=== PATIENT | male | born 1935 ===

== ENCOUNTER 2016-11-08 12:10 | Emergency (ER) | payer MEDICARE, MEDICAID ==
[2016-11-08 12:22] VITALS: BP 159/75; PULSE 77; RESP 18; TEMP 97.6; O2SAT 96
--- NOTE | 2016-11-08 13:11 | ED PDOC ---
Arrival/HPI - General Historian: Patient - General Chief Complaint: ENT Problem Time Seen by Provider: 11/08/16 12:25 - History of Present Illness Narrative History of Present Illness (Text): 11/08/16 13:08 81 yo male presenting with complaints of sore throat and myalgias. Patient states these symptoms have been ongoing for 10 days. He denies GI symptoms, cough, shortness of breath, chest pain, fever or chills. The patient was prescribed Amoxicillin on 11/06/16 and has taken one dose at this point. Currently the patient is afebrile and without acute distress. 11/08/16 14:53 (Clayton Higgins) Past Medical History - Provider Review Nursing Documentation Reviewed: Yes - Infectious Disease Hx of Infectious Diseases: None - Psychiatric Hx Substance Use: No Family/Social History - Physician Review Nursing Documentation Reviewed: Yes Family/Social History: Unknown Family HX Smoking Status: Never Smoked Hx Alcohol Use: No Hx Substance Use: No Allergies/Home Meds Allergies/Adverse Reactions: Allergies No Known Allergies Allergy (Verified 11/08/16 12:22) Home Medications: Home Meds Medication Instructions Recorded Confirmed Amoxicillin [Amoxil 500 mg Cap] 500 mg PO TID 11/08/16 11/08/16 Review of Systems - Physician Review All systems were reviewed & negative as marked: Yes - Review of Systems Constitutional: absent: Fatigue, Fevers Eyes: Normal ENT: Sore Throat. absent: Tinnitus, Voice Changes, Rhinorrhea, Sinus Congestion Cardiovascular: absent: Chest Pain, SANCHEZ Gastrointestinal: absent: Abdominal Pain, Diarrhea, Nausea, Vomiting Genitourinary Male: absent: Dysuria, Frequency, Hematuria Musculoskeletal: Myalgias. absent: Back Pain, Neck Pain Skin: absent: Rash, Pruritis, Skin Lesions Neurological: absent: Headache, Dizziness, Focal Weakness Psychiatric: absent: Anxiety, Depression Physical Exam Vital Signs Reviewed: Yes Temperature: Afebrile Blood Pressure: Normal Pulse: Regular Respiratory Rate: Normal Appearance: Positive for: Well-Appearing, Non-Toxic Pain Distress: None Mental Status: Positive for: Alert and Oriented X 3 - Systems Exam Head: Present: Atraumatic, Normocephalic Pupils: Present: PERRL Extroacular Muscles: Present: EOMI Conjunctiva: Present: Normal Mouth: Present: Moist Mucous Membranes, Normal Lips, Normal Tounge. No: Drooling, Trismus Pharnyx: Present: Other (no hyoid tenderness). No: ERYTHEMA, EXUDATE, TONSILS ENLARGED, Peritonsilar Swelling, Uvular Deviation, Muffled/Hoarse Voice, Strider , Soft Palate/Uvular Edema Neck: Present: Normal Range of Motion, Trachea Midline. No: Meningeal Signs, Lymphadenopathy Respiratory/Chest: Present: Clear to Auscultation, Good Air Exchange. No: Respiratory Distress Abdomen: Present: Normal Bowel Sounds. No: Tenderness Upper Extremity: Present: Normal Inspection. No: Cyanosis, Edema Lower Extremity: Present: Normal Inspection, CALF TENDERNESS, NORMAL PULSES. No : Edema Neurological: Present: GCS=15, CN II-XII Intact, Speech Normal Skin: Present: Warm. No: Dry, Rashes Psychiatric: Present: Alert, Oriented x 3, Normal Insight, Normal Concentration Vital Signs Temp Pulse Resp BP Pulse Ox 11/08/16 12:17 97.6 F 77 18 159/75 H 96 Medical Decision Making ED Course and Treatment: Patient Seen With Resident: In agreement with resident note. Patient was seen and evaluated with resident, came up with plan and treatment together. (Olegario Lee) 11/08/16 13:29 81 y/o male presenting with pharyngitis. There are no clinical signs of retropharyngeal abscess, epiglottitis or gale angina. Patient is already taking Amoxicillin which he started one day ago. It was explained to the patient that this medication will take a few days to reduce his symptoms. The patient will return if symptoms do not resolve in 3 to 4 days. (Clayton Higgins) Disposition/Present on Arrival - Present on Arrival Any Indicators Present on Arrival: No History of DVT/PE: No History of Uncontrolled Diabetes: No Urinary Catheter: No History of Decub. Ulcer: No History Surgical Site Infection Following: None - Disposition Have Diagnosis and Disposition been Completed?: Yes Disposition Time: 14:00 - Disposition Diagnosis: Pharyngitis Disposition: HOME/ ROUTINE Condition: GOOD Discharge Instructions (ExitCare): Pharyngitis (ED) Print Language: DANISH Additional Instructions: Continue taking Amoxicillin as instructed. This medication will take a few days to be effective. Return to the ER if your symptoms do not resolve within the next 3 to 4 days. Referrals: Borghini,Latoya, MD [Primary Care Provider] - Follow up with primary
== END 2016-11-08 13:17 | disposition home or self-care (01) ==
LOC: ED 12:10
DX: J02.9 Acute pharyngitis, unspecified (principal)

== ENCOUNTER 2016-11-15 13:37 | Emergency (ER) | payer MEDICARE, MEDICAID ==
--- NOTE | 2016-11-15 14:09 | ED PDOC ---
Arrival/HPI - General Chief Complaint: ENT Problem Time Seen by Provider: 11/15/16 14:07 Historian: Patient, Family - History of Present Illness Narrative History of Present Illness (Text): 11/15/16 15:06 Patient reports several day h/o sore throat, states that he recently had the flu and saw his doctor, was prescribed amoxicillin to take 3 times a day for 7 days, last dose was taken yesterday. Otherwise: (-) cough, (-) fever, (-) SOB, ( -) chest pain, (-) N/V/D, (-) abdominal pain, (-) flank pain, (-) urinary symptoms, (-) recent travel, (-) sick contacts. PMD Bri Past Medical History - Provider Review Nursing Documentation Reviewed: Yes - Infectious Disease Hx of Infectious Diseases: None - Musculoskeletal/Rheumatological Hx Arthritis: Yes - Psychiatric Hx Substance Use: No - Anesthesia Hx Anesthesia: No Family/Social History - Physician Review Nursing Documentation Reviewed: Yes Family/Social History: No Known Family HX Smoking Status: Never Smoked Hx Alcohol Use: No Hx Substance Use: No Allergies/Home Meds Allergies/Adverse Reactions: Allergies No Known Allergies Allergy (Verified 11/08/16 12:22) Home Medications: Home Meds Medication Instructions Recorded Confirmed Amoxicillin [Amoxil 500 mg Cap] 500 mg PO TID 11/08/16 11/08/16 Review of Systems - Review of Systems Constitutional: Normal. absent: Fatigue, Weight Change, Fevers ENT: Normal. absent: Hearing Changes, Tinnitus, TMJ Pain Respiratory: Normal, Cough. absent: SOB, Sputum Cardiovascular: Normal. absent: Chest Pain, Palpitations Musculoskeletal: Normal. absent: Arthralgias, Back Pain, Neck Pain Skin: Normal. absent: Rash, Pruritis, Skin Lesions Physical Exam - Physical Exam Narrative Physical Exam (Text): 11/15/16 15:09 GENERAL APPEARANCE: Patient is awake, alert, oriented x 3, in no acute distress. SKIN: Warm, dry; (-) cyanosis, (-) rash. (-) Decubitus Ulcer EYES: (-) conjunctival pallor, (-) scleral icterus, (-) conjunctival hemorrhage. ENMT: Mucous membranes moist. TMs: (-) erythema. Airway patent: (-) stridor. Pharynx: (+) mild erythema, (-) exudate. NECK: (-) tenderness, (-) stiffness, (-) meningismus, (-) lymphadenopathy. CHEST AND RESPIRATORY: (-) accessory muscle use. Lungs: (-) rales, (-) rhonchi, (-) wheezes, (-) rub; breath sounds equal bilaterally. HEART AND CARDIOVASCULAR: (-) irregularity; (-) murmur, (-) gallop, (-) rub. ABDOMEN AND GI: Soft; (-) tenderness, (-) guarding; (-) organomegaly; (-) mass ; (-) CVA tenderness. EXTREMITIES: (-) deformity; (-) cellulitis, (-) lymphangitis; (-) subungual hemorrhage; (-) edema. NEURO AND PSYCH: Mental status as above; (-) focal findings. Vital Signs Temp Pulse Resp BP Pulse Ox 11/15/16 14:31 98 F 75 19 125/73 99 11/15/16 13:43 98.6 F 77 16 160/72 H 96 Medical Decision Making ED Course and Treatment: 11/15/16 15:09 81 yo M presents with sore throat, already on amoxicillin, which he took for 7 days. Patient advised to continue taking amoxicillin, given an Rx for 3 days worth of amoxicillin. Based on history and exam, plan will be for outpatient follow-up with PMD. Patient states he fully agrees with and understands discharge instructions. States that he agrees with the plan and disposition. Verbalized and repeated discharge instructions and plan. I have given the patient opportunity to ask any additional questions. Follow up with primary care physician in 1-2 days without fail. Advised to take medication as prescribed. Return to the emergency room at any time for any new or worsening symptoms. - PA / SILVER CHASER / Resident Statement MD/DO has reviewed & agrees with the documentation as recorded. Disposition/Present on Arrival - Present on Arrival Any Indicators Present on Arrival: No History of DVT/PE: No History of Uncontrolled Diabetes: No Urinary Catheter: No History of Decub. Ulcer: No History Surgical Site Infection Following: None - Disposition Have Diagnosis and Disposition been Completed?: Yes Diagnosis: Pharyngitis Disposition: HOME/ ROUTINE Disposition Time: 14:08 Patient Plan: Discharge Condition: GOOD Discharge Instructions (ExitCare): Pharyngitis (ED) Print Language: PORTUGUESE Additional Instructions: Thank you for letting us take care of you today. You were treated for pharyngitis. The emergency medical care you received today was directed at your acute symptoms. If you were prescribed any medication, please fill it and take as directed. It may take several days for your symptoms to resolve. Return to the Emergency Department if your symptoms worsen, do not improve, or if you have any other problems. Please contact your doctor in 2 days for re-evaluation and follow up. Bring any paperwork you were given at discharge with you along with any medications you are taking to your follow up visit. Our treatment cannot replace ongoing medical care by a primary care provider (PCP) outside of the emergency department. Thank you for allowing the [facility] team to be part of your care today. Prescriptions: Amoxicillin 500 mg PO TID #9 tablet Referrals: Latoya Gregory MD [Primary Care Provider] - Follow up with primary
[2016-11-15 14:32] VITALS: BP 125/73; PULSE 75; RESP 19; TEMP 98; O2SAT 99
== END 2016-11-15 14:32 | disposition home or self-care (01) ==
LOC: ED 13:37
DX: J02.9 Acute pharyngitis, unspecified (principal)